=== PATIENT | female | born 2000 | race Caucasian/White ===

== ENCOUNTER → 2021-05-18 | Outpatient (CLI) | payer OTHER ==
[~2021-05-18] MED LIST: PRENTAB9 PO
== END ==
LOC: M WHC 15:42
PROVIDERS: ATTEND Advanced Practice Midwife
DX: Z34.92 Encounter for supervision of normal pregnancy, unspecified, second trimester (principal); Z53.9 Procedure and treatment not carried out, unspecified reason

== ENCOUNTER → 2021-06-04 | Outpatient (CLI) | payer OTHER ==
--- NOTE | 2021-06-04 15:51 | REP ---
INDICATION: ANATOMY COMPARISON: None. TECHNIQUE: Transabdominal obstetrical ultrasound with color Doppler evaluation. FINDINGS: Examination demonstrates a single live intrauterine in cephalic presentation. motion is identified by technologist. Placenta is noted anterior and grade 1 without evidence for placenta previa or abruption. Amniotic fluid volume is normal. Cervix measures 4.5 cm in length and appears closed. Selected gestational age: 28 weeks 3 days with MIRIAM 08/24/2021. Gestational age by current measurements 29 weeks 4 days with MIRIAM 08/16/2021. FHR equals 167 beats per minute. Estimated weight 1452 grams (85thpercentile). Anatomical assessment demonstrates normal structures including cranium, choroid plexus, cavum, cerebellum/posterior fossa, facial features, lungs, four-chamber heart, diaphragm, stomach, cord insertion/three-vessel cord, kidneys/bladder, spine, and extremities. IMPRESSION: Single live intrauterine in cephalic presentation demonstrating appropriate estimated weight and growth. Anatomical assessment is essentially normal. Kidneys appear normal. <Electronically signed by Selwyn Romo > 06/04/21 [id number]
== END ==
LOC: M WHC 14:29
PROVIDERS: ATTEND Advanced Practice Midwife
DX: Z34.82 Encounter for supervision of other normal pregnancy, second trimester (principal); Z36.89 Encounter for other specified antenatal screening; Z3A.28 28 weeks gestation of pregnancy

== ENCOUNTER → 2021-06-17 | Outpatient (CLI) | payer OTHER ==
[2021-06-17 15:24] LABS: HEMATOCRIT 33.9 % (36.0-47.0); HEMOGLOBIN 11.4 g/dl (12.0-15.5); MEAN CORPUSCULAR HEMOGLOBIN 30.3 pg (27.0-33.0); MEAN CORPUSCULAR HGB CONC 33.6 g/dl (32.0-36.5); MEAN CORPUSCULAR VOLUME 90.2 fl (80.0-96.0); PLATELET COUNT, AUTOMATED 171 10^3/uL (150-450); RED BLOOD COUNT 3.76 10^6/uL (4.00-5.40); WHITE BLOOD COUNT 10.3 10^3/uL (4.0-10.0)
[2021-06-17 16:57] LABS: GC DNA AMPLIFICATION NEGATIVE (NEGATIVE)
== END ==
LOC: M PLALAB 12:00
PROVIDERS: ATTEND Advanced Practice Midwife
DX: Z34.92 Encounter for supervision of normal pregnancy, unspecified, second trimester (principal); Z36.89 Encounter for other specified antenatal screening

== ENCOUNTER → 2021-07-22 | Outpatient (CLI) | payer OTHER ==
[2021-07-22 17:55] LABS: HEMATOCRIT 34.9 % (36.0-47.0); HEMOGLOBIN 11.8 g/dl (12.0-15.5); MEAN CORPUSCULAR HEMOGLOBIN 29.5 pg (27.0-33.0); MEAN CORPUSCULAR HGB CONC 33.8 g/dl (32.0-36.5); MEAN CORPUSCULAR VOLUME 87.3 fl (80.0-96.0); PLATELET COUNT, AUTOMATED 211 10^3/uL (150-450); WHITE BLOOD COUNT 11.7 10^3/uL (4.0-10.0)
[2021-07-22 18:20] LABS: TOTAL PROTEIN,RANDOM URINE 18.4 MG/DL (0.0-12.0)
[2021-07-22 18:23] LABS: ALT/SGPT 13 U/L (12-78); BILIRUBIN,TOTAL 0.4 MG/DL (0.2-1.0); CREATININE FOR GFR 0.64 MG/DL (0.55-1.30); GLOMERULAR FILTRATION RATE > 60.0 (>60); LDH LACTATE DEHYDROGENASE 156 U/L (84-246); URIC ACID 4.1 MG/DL (2.6-6.0)
== END ==
LOC: M PLALAB 14:58
PROVIDERS: ATTEND Advanced Practice Midwife
DX: O26.893 Other specified pregnancy related conditions, third trimester (principal); Z3A.35 35 weeks gestation of pregnancy
CPT/HCPCS: 36415; 82247; 82565; 82570; 83615; 84156; 84450; 84460; 84550; 85027; 87081; G0463

== ENCOUNTER 2021-08-22 03:17 | Inpatient (IN) | payer OTHER ==
[~2021-08-22] VITALS: Ht 167.6 cm; Wt 68.2 kg
[2021-08-22] VITALS (12 sets, daily range): BP systolic 109–150; BP diastolic 57–73
[2021-08-22] MEDS ORDERED: OXYTOCIN INJ 10 UNITS/ML VIAL (J2590) IM ONE (03:50)
[2021-08-22] MEDS ORDERED: MEASLES,MUMPS,RUBELLA VACCINE INJ (MMR-II) (90707) SC SCH (03:50)
[2021-08-22] MEDS ORDERED: IBUPROFEN 600MG TAB PO PRN (03:50)
[2021-08-22] MEDS ORDERED: DIBUCAINE 1% OINTMENT 30GM TOP PRN (03:50)
[2021-08-22] MEDS ORDERED: RHOGAM 300 MCG (1500 IU) INJ (J2790) IM SCH (03:50)
[2021-08-22] MEDS ORDERED: ACETAMINOPHEN TAB 650MG DOSE (2X325MG) PO PRN (03:50)
[2021-08-22] MEDS ORDERED: DOCUSATE SODIUM 100MG CAPSULE PO PRN (03:50)
[2021-08-22] MEDS ORDERED: ACETAMINOPHEN 500 MG TAB PO PRN (03:50)
[2021-08-22] MEDS ORDERED: PROMETHAZINE 25 MG TAB PO PRN (03:50)
--- NOTE | 2021-08-22 03:59 | DNPDOC ---
[facility] Delivery Note Delivery Note DATE OF DELIVERY: 22Aug2021 PREDELIVERY DIAGNOSIS: 39+5 weeks gestation, active labor POST DELIVERY DIAGNOSIS: Precipitous vaginal delivery PROCEDURE: Spontaneous vaginal delivery BLUNGER: Dr. Mcwilliams ANESTHESIA: None ESTIMATED BLOOD LOSS: 200 mL. FINDINGS: 8 pound 4 ounce male infant, Score 8/9 DELIVERY SUMMARY: Merry is a 21 yo G2 now P2 who presented to L&D in 2nd stage of labor and precipitously delivered her . I was called to the room with the fetus at +3 station. With excellent pushing effort her infant delivered. Presentation was FREDDIE with restitution to ROT. The left anterior shoulder delivered with gentle traction followed easily by the remainder of the body. The was dried and stimulated on the field and a bulb suction was used. The baby cried vigorously and was placed on the maternal abdomen. The three vessel cord was then clamped and cut by the FOB after appropriate time delay and under my direction. 3rd stage was completed with gentle traction on the cord and it was productive of an intact placenta. The uterus fundus was firmed with massage and 5mU IM pitocin was administered. Inspection of the cervix, vagina, perineum, and labia revealed no lacerations. The fundus was palpated again and was confirmed to be firm. Sponge and instrument counts were correct X3. Mother and stable when I left the room. JOE Melo DO Aug 22, 2021 03:59
--- NOTE | 2021-08-22 04:11 | HPEPDOC ---
Obstetrical History & Physical General Date of Admission Aug 22, 2021 at 03:17 History of Present Illness 21 yo presented to L&D in 2nd stage of labor and precipitously delivered her . See delivery note for details. Chief Complaint: Contractions, term Information Provided By: Patient Age: 21 : 2 Term: 1 Pre-term: 0 Abortions: 0 Livin Care Care: Good Care Dating Final EDC: Aug 24, 2021 Final EDC for Daily Update: Aug 24, 2021 Final EDC by: LMP, 2nd trimester (US) (23 week US set MIRIAM of [id number]) Antepartum Course Diagnos(e)s Uncomplicated Past Medical History Past Obstetrical History : Past Obstetrical History: Multigravida Type of Delivery: Spontaneous Vaginal Del. 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 Distressed in 2nd stage of labor. ABDOMEN: Gravid and non-tender to touch. FETUS: Is vertex (VTX) by sterile vaginal examination (SVE) EXTREMITIES: No edema. No clonus. Pertinent Laboratoy Data Blood Type: O+ RBC Antibody Screen: Negative HIV: Unknown Hepatitis B: Unknown Hepatitis C: Unknown Rapid Plasma Reagin: Unknown Rubella: Unknown Varicella: Unknown Chlamydia/Gonorrhea: Negative Group B Streptococcus: Negative Quad Screen Test: Unknown Cystic Fibrosis: Unknown Glucose Tolerance Test: 107 Anatomy Ultrasound Placenta Location: Anterior Normal Anatomy: Yes Placenta Previa: No Steroid Therapy Steroid Therapy: No Vaginal Examination Dilation: complete Effacement: 100% Station: +3 Cervical Consistency: Soft Cervical Position: Anterior Presentation: Cephalic presentation Position: Vertex (occiput) Assessment Heart Rate (FHR): 130 Variability: Moderate Accelerations: Positive Decelerations: None Tocometer Contractions: Yes Frequency: regular Assessment/Plan Assessment 21 yo G2 now P2 presented to L&D in 2nd stage of labor and precipitously delivered her . Plan Admit. Obtain missing labs. Routine care. All patient and questions answered. JOE SANDERSON DO Aug 22, 2021 04:11
[2021-08-22] MEDS ORDERED: PRENTAB9 PO (04:12)
[2021-08-22] MEDS: IBUPROFEN 800 MG TAB PO PRN ×2 (04:26→20:24)
[2021-08-22 04:37] LABS: HEMATOCRIT 32.6 % (36.0-47.0); HEMOGLOBIN 11.1 g/dl (12.0-15.5); MEAN CORPUSCULAR HEMOGLOBIN 29.8 pg (27.0-33.0); MEAN CORPUSCULAR VOLUME 87.4 fl (80.0-96.0); PLATELET COUNT, AUTOMATED 153 10^3/uL (150-450); RED BLOOD COUNT 3.73 10^6/uL (4.00-5.40); WHITE BLOOD COUNT 15.1 10^3/uL (4.0-10.0)
[2021-08-22] MEDS ORDERED: LR 1,000 ML IV ONE (06:30)
[2021-08-22 06:51] LABS: HEMATOCRIT 30.8 % (36.0-47.0); HEMOGLOBIN 10.5 g/dl (12.0-15.5); MEAN CORPUSCULAR HEMOGLOBIN 30.1 pg (27.0-33.0); MEAN CORPUSCULAR HGB CONC 34.1 g/dl (32.0-36.5); MEAN CORPUSCULAR VOLUME 88.3 fl (80.0-96.0); PLATELET COUNT, AUTOMATED 148 10^3/uL (150-450); RED BLOOD COUNT 3.49 10^6/uL (4.00-5.40); WHITE BLOOD COUNT 16.5 10^3/uL (4.0-10.0)
[2021-08-22 07:15] LABS: BLOOD UREA NITROGEN 7 MG/DL (7-18); CALCIUM LEVEL 8.4 MG/DL (8.5-10.1); CARBON DIOXIDE LEVEL 23 MEQ/L (21-32); CHLORIDE LEVEL 106 MEQ/L (98-107); CREATININE FOR GFR 0.46 MG/DL (0.55-1.30); GLOMERULAR FILTRATION RATE > 60.0 (>60); GLUCOSE, FASTING 89 MG/DL (70-100); POTASSIUM SERUM 3.5 MEQ/L (3.5-5.1); SODIUM LEVEL 137 MEQ/L (136-145)
[2021-08-22 08:35] LABS: AMPHETAMINES URINE REFLEX NEGATIVE (NEGATIVE); BARBITURATES URINE REFLEX NEGATIVE (NEGATIVE); BENZODIAZEPINES URINE REFLEX NEGATIVE (NEGATIVE); CANNABINOIDS URINE REFLEX NEGATIVE (NEGATIVE); COCAINE METABOLITE URINE REFLE NEGATIVE (NEGATIVE); METHADONE URINE REFLEX NEGATIVE (NEGATIVE); OPIATES URINE REFLEX NEGATIVE (NEGATIVE); PHENCYCLIDINE URINE REFLEX NEGATIVE (NEGATIVE)
[2021-08-22] MEDS: PRENATAL VITAMINS CHEWABLE TABLET PO SCH (13:25)
[2021-08-23 06:00] VITALS: BP 118/60
[2021-08-23] MEDS: PRENATAL VITAMINS CHEWABLE TABLET PO SCH (09:13)
--- NOTE | 2021-08-23 10:51 | IPN ---
PROGRESS NOTE DATE: 08/22/2021 SUBJECTIVE: This patient requested circumcision of her male infant. After discussing risks and benefits of circumcision, the medical and non-medical indications, the penile block and aftercare, expressed understanding of penile block, aftercare and bleeding, signed the consent form. All questions were answered, a 20 minute discussion. We await clearance by the telehealth case manager.
--- NOTE | 2021-08-23 12:09 | IPNPDOC ---
Progress Note Date of Service: Aug 23, 2021 Day#: 1 Progress Note SUBJECT: [21]-year-old [2] now Para [2]-[0]-[0]-[2] status post unco mplicated spontaneous vaginal delivery doing well day # [1]. She has been ambulating, voiding spontaneously without issue and tolerating regular diet. Breast feeding without issue. hout difficulty]. OBJECTIVE: VITAL SIGNS: Within normal limits, afebrile. Alert and oriented times three. Breath sounds clear to auscultation. Heart rate: Regular rate and rhythm, no murmurs, rubs or gallops. Abdomen: Fundus firm at U-2. Soft, NTTP. [Minimal] lochia. ASSESSMENT: [21]-year-old female status post uncomplicated spontaneous vaginal delivery doing well on day [1]. Vitals within normal limits, afebrile, hemodynamically stable with no evidence of infection. Wants to go home. PLAN: 1. Discharge to home today. 2. Tylenol and Motrin for pain. 3. Routine PP visit in 6 weeks in clinic. 4. Discussed return precautions at length. VS, I&O, 24H, Fishbone Vital Signs/I&O Vital Signs Date Time Temp Pulse Resp B/P (MAP) Pulse Ox O2 Delivery O2 Flow Rate FiO2 08/23/21 06:00 98.5 72 14 118/60 (79) 98 Room Air I&O- Last 24 Hours up to 6 AM 08/23/21 06:00 Intake Total 1000 ml Output Total 250 ml Balance 750 ml Dakota Guerrero DO Aug 23, 2021 12:09
== END 2021-08-23 13:05 | disposition home or self-care (01) | DRG 807 ==
LOC: M LDI 03:17 → M OBS 12:40
PROVIDERS: ADMIT Advanced Practice Midwife; ATTEND Obstetrics & Gynecology
PROC: 10E0XZZ Delivery of Products of Conception, External Approach (ICD-10-PCS; principal; 2021-08-22)
DX: O62.3 Precipitate labor (principal); Z37.0 Single live birth; Z3A.39 39 weeks gestation of pregnancy